=== PATIENT | male | born 1980 | race Caucasian/White ===

== ENCOUNTER 2020-05-15 03:26 | Emergency (ER) | payer BC ==
[2020-05-15] MEDS ORDERED: Adacel (T-DAP) 0.5 ML SYRINGE ONE (03:41)
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
== END 2020-05-15 04:55 | disposition home or self-care (01) ==
LOC: ERS 03:26
DX: S02.2XXA Fracture of nasal bones, initial encounter for closed fracture (principal); S01.01XA Laceration without foreign body of scalp, initial encounter; I10 Essential (primary) hypertension; E78.00 Pure hypercholesterolemia, unspecified; F32.9 Major depressive disorder, single episode, unspecified; F17.210 Nicotine dependence, cigarettes, uncomplicated; Z79.82 Long term (current) use of aspirin; Z79.899 Other long term (current) drug therapy; V69.9XXA Occupant (driver) (passenger) of heavy transport vehicle injured in unspecified traffic accident, initial encounter
CPT/HCPCS: 12001; 70450; 71045; 90471; 90715